=== PATIENT | male | born 1985 | race American Indian/Alaskan Native ===

== ENCOUNTER 2017-05-15 18:12 | Inpatient (IN) | payer OTHER ==
--- NOTE | 2017-05-15 18:36 | Emergency Department Report ---
Stated Complaint: ALCOHOL WITHDRAWL Time Seen by Provider: 05/15/17 18:32 - HPI History of Present Illness: PT states he had a hx of ETOH abuse. PT states he started drinking Wed and stopped this morning. PT states he has been throwing up since 1500 and he does not feel well. - ROS Review of Systems: + chills + n/v + abd pain - Exam Vital Signs: Vital Signs 05/15/17 18:29 Temperature 98.7 F Pulse Rate 134 H Respiratory 20 Rate Blood Pressure 137/97 O2 Sat by Pulse 98 Oximetry Physical Exam: PT anxious in triage PT's abd soft, mild tenderness to umbilicus tachycardic MSE screening note: Focused history and physical exam performed. Due to findings the following was ordered: labs, urine, ekg ED Disposition for MSE Condition: Stable
[2017-05-15 19:14] LABS: Basophils % (Auto) 0.5 % (0.0-1.8); Eosinophils % (Auto) 0.2 % (0.0-4.3); Hematocrit 42.4 % (35.5-45.6); Hemoglobin 14.1 gm/dl (11.8-15.2); Mean Corpuscular HGB Conc 33 % (32-34); Mean Corpuscular Hemoglobin 30 pg (28-32); Mean Corpuscular Volume 89 fl (84-94); Platelet Count 152 K/mm3 (140-440); Red Blood Count 4.77 M/mm3 (3.65-5.03); Red Cell Distribution Width 17.6 % (13.2-15.2); White Blood Count 6.5 K/mm3 (4.5-11.0)
[2017-05-15 19:33] LABS: Alanine Aminotransferase 52 units/L (7-56); Albumin 4.8 g/dL (3.9-5); Albumin/Globulin Ratio 1.3 %; Alkaline Phosphatase 124 units/L (35-129); Anion Gap 30 mmol/L; BUN/Creatinine Ratio 13.75; Blood Urea Nitrogen 11 mg/dL (9-20); Calcium 9.7 mg/dL (8.4-10.2); Carbon Dioxide 22 mmol/L (22-30); Chloride 89.9 mmol/L (98-107); Glucose 104 mg/dL (75-100); Lipase 61 units/L (13-60); Potassium 3.8 mmol/L (3.6-5.0); Sodium 138 mmol/L (137-145); Total Protein 8.6 g/dL (6.3-8.2)
[2017-05-15 19:43] LABS: Urine Drugs of Abuse Note Disclamer
[2017-05-15 20:21] LABS: Bacteria,Urine 1+ /HPF (Negative); Bilirubin,Urine NEG (Negative); Blood,Urine SM (Negative); Ketones,Urine TR mg/dL (Negative); Leukocyte Esterase,Urine TR (Negative); Mucus,Urine 2+ /HPF; Nitrite,Urine NEG (Negative); Urobilinogen,Urine < 2.0 mg/dL (<2.0)
[2017-05-16] MEDS ORDERED: ATIVAN IV PRN ×2 (01:49)
[2017-05-16] MEDS ORDERED: NACL 0.9% 1000 ML 1,000 ML ONE (01:58)
[2017-05-16] MEDS ORDERED: VITAMIN B-1 100 MG, FOLVITE 1 MG, INFUVITE 10 ML in NACL 0.9% 1000 ML 1,000 ML IV ONE (02:08)
[2017-05-16] MEDS ORDERED: ZOFRAN IV ONE (02:08)
--- NOTE | 2017-05-16 02:25 | Emergency Department Report ---
HPI - General Chief Complaint: Alcohol Time Seen by Provider: 05/15/17 18:32 - HPI HPI: This is a 31-year-old -[place] male presents to the emergency department , dropped off by his mother, with complaint of nausea, vomiting, abdominal discomfort and shakiness that he believes is alcohol withdrawal. The patient has a history of alcoholism and says that he was sober for about 13 months but just finished a 5 day drinking binge. He says that he was on "vacation from work" and thought that he could just drink a little bit and enjoy himself. he says he was able to drink one gail on the first day but then each day he was drinking progressively more. His last drink was at about 8 AM this morning. He denies any illicit drug use. He denies any history of alcohol withdrawal seizures or delirium tremens history. He did not take anything for his symptoms prior to presentation. ED Past Medical Hx - Past Medical History Previous Medical History?: No - Surgical History Past Surgical History?: No - Social History Smoking Status: Current Every Day Smoker Substance Use Type: Alcohol - Medications Home Medications: Home Medications Medication Instructions Recorded Confirmed Last Taken Type No Known Home Medications [No 12/22/15 05/16/17 Unknown History Reported Home Medications] ED Review of Systems ROS: Stated complaint: ALCOHOL WITHDRAWL Other details as noted in HPI Comment: All other systems reviewed and negative Constitutional: denies: chills, fever Eyes: denies: eye pain, eye discharge, vision change ENT: denies: ear pain, throat pain Respiratory: denies: cough, shortness of breath, wheezing Cardiovascular: denies: chest pain, palpitations Gastrointestinal: abdominal pain, nausea, vomiting Genitourinary: denies: urgency, dysuria Musculoskeletal: denies: back pain, joint swelling, arthralgia Skin: denies: rash, lesions Neurological: denies: headache, weakness, paresthesias Physical Exam - Physical Exam Vital Signs: Vital Signs 05/15/17 05/16/17 18:29 00:14 Temperature 98.7 F 98.3 F Pulse Rate 134 H 137 H Respiratory 20 18 Rate Blood Pressure 137/97 140/90 O2 Sat by Pulse 98 95 Oximetry Physical Exam: GENERAL: The patient is well-developed well-nourished. HENT: Normocephalic. Atraumatic. Patient has moist mucous membranes. EYES: Extraocular motions are intact. Pupils equal reactive to light bilaterally. NECK: Supple. Trachea is midline. CHEST/LUNGS: Clear to auscultation. There is no respiratory distress noted. HEART/CARDIOVASCULAR: Regular. There is moderate tachycardia. There is no gallop rub or murmur. ABDOMEN: Abdomen is soft, nontender. Patient has hyperactive bowel sounds. There is no abdominal distention. SKIN: Skin is warm and dry. NEURO: The patient is awake, alert, and oriented. The patient is cooperative. The patient has no focal neurologic deficits. The patient has normal speech. Patient has some restlessness and/or agitation. There is a mild tremor seen with hands and arms extended. MUSCULOSKELETAL: There is no tenderness or deformity. There is no limitation range of motion. There is no evidence of acute injury. ED Course Vital Signs 05/15/17 05/16/17 18:29 00:14 Temperature 98.7 F 98.3 F Pulse Rate 134 H 137 H Respiratory 20 18 Rate Blood Pressure 137/97 140/90 O2 Sat by Pulse 98 95 Oximetry ED Medical Decision Making - Lab Data Result diagrams: 05/15/17 18:57 05/15/17 18:57 - EKG Data -: EKG Interpreted by Nh EKG shows normal: sinus rhythm, axis, intervals, QRS complexes, ST-T waves Rate: tachycardia (126 bpm) - EKG Data When compared to previous EKG there are: previous EKG unavailable Interpretation: other (sinus tachycardia at 126 bpm) - Medical Decision Making 31-year-old male presents with alcohol withdrawal. He presents with nausea, vomiting, abdominal pain and showed some restlessness and agitation as he came to triage. He has moderate tachycardia. Blood alcohol level is 0.23 at 7 PM and the patient stopped drinking almost 12 hours earlier. Despite the fact that he still has alcohol intoxication he does have some symptoms of withdrawal. He was given 4 mg of Ativan and he does not appear sedated but it has improved some of his symptoms. He still remains with some tachycardia and complaints of nausea but appears less restless. He will be admitted to the hospital for further evaluation and treatment has been accepted for admission by the hospitalist, Dr. Miller. - Differential Diagnosis Alcohol intoxication, withdrawal, DT's Critical Care Time: No Critical care attestation.: If time is entered above; I have spent that time in minutes in the direct care of this critically ill patient, excluding procedure time. ED Disposition Clinical Impression: Alcohol intoxication, Alcohol withdrawal, Nausea & vomiting Disposition: DC-09 OP ADMIT IP TO THIS HOSP Is pt being admited?: Yes Condition: Stable Referrals: PRIMARY CARE, [Primary Care Provider] - 3-5 Days Time of Disposition: 04:03
[2017-05-16] MEDS ORDERED: ROCEPHIN/NS 1 GM/50 ML 1 GM/50 ML BAG IV ONE (02:56)
[2017-05-16] MEDS ORDERED: MILK OF MAGNESIA PO PRN (05:07)
[2017-05-16] MEDS ORDERED: DULCOLAX PR PRN (05:07)
[2017-05-16] MEDS ORDERED: TYLENOL PO PRN (05:07)
[2017-05-16] MEDS ORDERED: ZOFRAN IV PRN (05:07)
--- NOTE | 2017-05-16 05:09 | History and Physical Report ---
History of Present Illness Date of examination: 05/16/17 History of present illness: 31-year-old male with a history of alcohol abuse was maintained sobriety for the last 13 months, relapsed and started drinking heavily over the last 5 days. He quit cold turkey yesterday and then developed shakes with multiple episodes of nausea vomiting, unable to tolerate oral intake Review Of Systems: Constitutional: no weight loss Ears, eyes, nose, mouth and throat: no nasal congestion, no nasal discharge, no sinus pressure, blurry vision, diplopia Neck: No neck pain or rigidity. Cardiovascular: chest pain, orthopnea, palpitations Respiratory: No shortness of breath, cough Gastrointestinal: abdominal pain, hematochezia Genitourinary : no dysuria, frequency , hematuria Musculoskeletal: no muscle ache Integumentary: no rash, no pruritis Neurological: no parathesias, focal weakness Endocrine: no cold or heat intolerance, no polyuria or polydipsia Hematologic/Lymphatic: no easy bruising, no easy bleeding, no gland swelling Allergic/Immunologic: no urticaria, no angioedema. PAST MEDICAL HISTORY:alcohol abuse PAST SURGICAL HISTORY: None FAMILY HISTORY: Hypertension SOCIAL HISTORY: Alcohol abuse as discussed above, smoked 1 cigarette a day, no drugs Medications and Allergies Allergies Allergy/AdvReac Type Severity Reaction Status Date / Time egg AdvReac Unknown Verified 05/15/17 18:31 Home Medications Medication Instructions Recorded Confirmed Last Taken Type No Known Home Medications [No 12/22/15 05/16/17 Unknown History Reported Home Medications] Active Meds: Active Medications Thiamine HCl 100 mg/ Folic Acid 1 mg/ Multivitamins/Minerals 10 ml/ Sodium Chloride 1,011.2 mls @ 250 mls/hr IV ONCE.ED ONE Stop: 05/16/17 06:10 Last Admin: 05/16/17 03:04 Dose: 250 mls/hr Lorazepam (Ativan) 2 mg IV Q1HR PRN PRN Reason: CIWA-Ar 8-15 Lorazepam (Ativan) 4 mg IV Q1HR PRN PRN Reason: CIWA-Ar 16-25 Lorazepam (Ativan) 4 mg IV Q15MIN PRN PRN Reason: CIWA-Ar >25 Last Admin: 05/16/17 01:53 Dose: 4 mg Exam - Physical Exam Narrative exam: Gen. appearance: Patient lying in bed in no acute distress HEENT: Normocephalic/atraumatic, pupils equal round reactive to light, extra alkaline movement intact, no scleral icterus, no JVD or thyromegaly or nodule, neck is supple, mucous membrane moist, no erythema or exudate Heart: S1-S2, regular rate and rhythm Lungs: Clear to auscultation bilateral breathing comfortable Abdomen: Positive bowel sounds, nontender, nondistended, no organomegaly Extremities: No edema, cyanosis, clubbing Neuro:: Oriented 3 , tremulous, cranial nerves II-12 intact, speech, motor intact Skin: No rash, nodules, warm dry - Constitutional Vitals: Temp Pulse Resp BP Pulse Ox 98.4 F 116 H 20 140/88 97 05/16/17 02:49 05/16/17 02:49 05/16/17 03:18 05/16/17 02:49 05/16/17 03:18 Results - Labs CBC & Chem 7: 05/15/17 18:57 05/15/17 18:57 Labs: Abnormal lab results 05/15/17 05/15/17 05/15/17 Range/Units 18:57 18:57 18:57 RDW 17.6 H (13.2-15.2) % Lymph % (Auto) 38.1 H (13.4-35.0) % Chloride 89.9 L (98-107) mmol/L Glucose 104 H (75-100) mg/dL AST 72 H (5-40) units/L Total Protein 8.6 H (6.3-8.2) g/dL Lipase 61 H (13-60) units/L Urine WBC (Auto) (0.0-6.0) /HPF Salicylates < 0.3 L (2.8-20.0) mg/dL Plasma/Serum Alcohol (0-0.07) gm% 05/15/17 05/15/17 Range/Units 18:57 19:17 RDW (13.2-15.2) % Lymph % (Auto) (13.4-35.0) % Chloride (98-107) mmol/L Glucose (75-100) mg/dL AST (5-40) units/L Total Protein (6.3-8.2) g/dL Lipase (13-60) units/L Urine WBC (Auto) 25.0 H (0.0-6.0) /HPF Salicylates (2.8-20.0) mg/dL Plasma/Serum Alcohol 0.23 H (0-0.07) gm% Assessment and Plan Assessment Delirium tremens/alcohol withdrawal Alcohol abuse UTI Plan Admit to medicine Start wa protocol with IV Ativan, IV fluids, thiamine and folic acid DVT prophylaxis, IV Rocephin
[2017-05-16] MEDS ORDERED: LOVENOX SUB-Q SCH (10:00)
[2017-05-16] MEDS: FOLVITE PO SCH (11:03)
[2017-05-16] MEDS: LOVENOX SUB-Q SCH (11:03)
[2017-05-16] MEDS: VITAMIN B-1 PO SCH (11:03)
[2017-05-16] MEDS: ATIVAN IV PRN ×2 (12:15→16:07)
--- NOTE | 2017-05-16 13:15 | Event Note ---
Date: 05/16/17 Patient seen and examined. This is a follow-up from an admission earlier this morning. Continue plan as outlined in the H&P.
[2017-05-16] MEDS: ROCEPHIN/NS 1 GM/50 ML 1 GM/50 ML BAG IV SCH (23:00)
[2017-05-17] MEDS: ATIVAN IV PRN ×2 (01:00→10:19)
[2017-05-17 06:07] LABS: Basophils % (Auto) 0.5 % (0.0-1.8); Eosinophils % (Auto) 1.2 % (0.0-4.3); Hematocrit 37.6 % (35.5-45.6); Hemoglobin 12.3 gm/dl (11.8-15.2); Mean Corpuscular HGB Conc 33 % (32-34); Mean Corpuscular Hemoglobin 30 pg (28-32); Mean Corpuscular Volume 90 fl (84-94); Red Blood Count 4.17 M/mm3 (3.65-5.03); White Blood Count 4.5 K/mm3 (4.5-11.0)
[2017-05-17 06:11] LABS: Platelet Count 95 K/mm3 (140-440)
[2017-05-17 06:32] LABS: Anion Gap 15 mmol/L; BUN/Creatinine Ratio 8.88; Blood Urea Nitrogen 8 mg/dL (9-20); Carbon Dioxide 28 mmol/L (22-30); Chloride 98.2 mmol/L (98-107); Glucose 85 mg/dL (75-100); Potassium 3.3 mmol/L (3.6-5.0); Sodium 138 mmol/L (137-145)
[2017-05-17] MEDS: LOVENOX SUB-Q SCH (10:18)
[2017-05-17] MEDS: FOLVITE PO SCH (10:19)
[2017-05-17] MEDS: VITAMIN B-1 PO SCH (10:19)
--- NOTE | 2017-05-17 10:47 | Progress Note ---
Assessment and Plan Assessment and plan: Alcohol withdrawal syndrome. Continue CIWA protocol. Psychiatry consultation. Alcohol abuse. We will discuss with case management rehabilitation options. UTI. Continue IV antibiotics and follow-up urine cultures. DVT prophylaxis. Continue Lovenox daily. History Interval history: Patient with slight tremors. Otherwise no new complaints. Hospitalist Physical - Constitutional Vitals: Temp Pulse Resp BP Pulse Ox 98.6 F 100 H 18 124/84 97 05/17/17 04:52 05/17/17 04:52 05/17/17 04:52 05/17/17 04:52 05/17/17 10:00 General appearance: Present: no acute distress, well-nourished - EENT Eyes: Present: PERRL, EOM intact ENT: hearing intact, clear oral mucosa, dentition normal - Neck Neck: Present: supple, normal ROM - Respiratory Respiratory effort: normal Respiratory: bilateral: CTA - Cardiovascular Rhythm: regular Heart Sounds: Present: S1 & S2. Absent: gallop, rub - Extremities Extremities: no ischemia, No edema, Full ROM - Abdominal General gastrointestinal: soft, non-tender, non-distended, normal bowel sounds - Integumentary Integumentary: Present: clear, warm, dry - Neurologic Neurologic: CNII-XII intact, moves all extremities Results - Labs CBC & Chem 7: 05/17/17 04:00 05/17/17 04:00 Labs: Laboratory Last Values WBC 4.5 K/mm3 (4.5-11.0) 05/17/17 04:00 RBC 4.17 M/mm3 (3.65-5.03) 05/17/17 04:00 Hgb 12.3 gm/dl (11.8-15.2) 05/17/17 04:00 Hct 37.6 % (35.5-45.6) 05/17/17 04:00 MCV 90 fl (84-94) 05/17/17 04:00 MCH 30 pg (28-32) 05/17/17 04:00 MCHC 33 % (32-34) 05/17/17 04:00 RDW 18.0 % (13.2-15.2) H 05/17/17 04:00 Plt Count 95 K/mm3 (140-440) L 05/17/17 04:00 Lymph % (Auto) 41.7 % (13.4-35.0) H 05/17/17 04:00 [place] % (Auto) 7.7 % (0.0-7.3) H 05/17/17 04:00 Eos % (Auto) 1.2 % (0.0-4.3) 05/17/17 04:00 Baso % (Auto) 0.5 % (0.0-1.8) 05/17/17 04:00 Lymph # 1.9 K/mm3 (1.2-5.4) 05/17/17 04:00 [place] # 0.3 K/mm3 (0.0-0.8) 05/17/17 04:00 Eos # 0.1 K/mm3 (0.0-0.4) 05/17/17 04:00 Baso # 0.0 K/mm3 (0.0-0.1) 05/17/17 04:00 Seg Neutrophils % 48.9 % (40.0-70.0) 05/17/17 04:00 Seg Neutrophils # 2.2 K/mm3 (1.8-7.7) 05/17/17 04:00 Sodium 138 mmol/L (137-145) 05/17/17 04:00 Potassium 3.3 mmol/L (3.6-5.0) L 05/17/17 04:00 Chloride 98.2 mmol/L (98-107) 05/17/17 04:00 Carbon Dioxide 28 mmol/L (22-30) 05/17/17 04:00 Anion Gap 15 mmol/L 05/17/17 04:00 BUN 8 mg/dL (9-20) L 05/17/17 04:00 Creatinine 0.9 mg/dL (0.8-1.5) 05/17/17 04:00 Estimated GFR > 60 ml/min 05/17/17 04:00 BUN/Creatinine Ratio 8.88 % 05/17/17 04:00 Glucose 85 mg/dL (75-100) 05/17/17 04:00 Calcium 9.0 mg/dL (8.4-10.2) 05/17/17 04:00 Total Bilirubin 0.40 mg/dL (0.1-1.2) 05/15/17 18:57 AST 72 units/L (5-40) H 05/15/17 18:57 ALT 52 units/L (7-56) 18 18:57 Alkaline Phosphatase 124 units/L (35-129) 05/15/17 18:57 Total Protein 8.6 g/dL (6.3-8.2) H 18 18:57 Albumin 4.8 g/dL (3.9-5) 18 18:57 Albumin/Globulin Ratio 1.3 % 05/15/17 18:57 Lipase 61 units/L (13-60) H 05/15/17 18:57 Urine Color [place] (Yellow) 05/15/17 19:17 Urine Turbidity Clear (Clear) 05/15/17 19:17 Urine pH 5.0 (5.0-7.0) 05/15/17 19:17 Ur Specific [place] 1.030 (1.003-1.030) 05/15/17 19:17 Urine Protein 100 mg/dl mg/dL (Negative) 05/15/17 19:17 Urine Glucose (UA) >=500 mg/dL (Negative) 05/15/17 19:17 Urine Ketones Tr mg/dL (Negative) 05/15/17 19:17 Urine Blood Sm (Negative) 05/15/17 19:17 Urine Nitrite Neg (Negative) 05/15/17 19:17 Urine Bilirubin Neg (Negative) 05/15/17 19:17 Urine Urobilinogen < 2.0 mg/dL (<2.0) 05/15/17 19:17 Ur Leukocyte Esterase Tr (Negative) 05/15/17 19:17 Urine WBC (Auto) 25.0 /HPF (0.0-6.0) H 05/15/17 19:17 Urine RBC (Auto) 7.0 /HPF (0.0-6.0) 05/15/17 19:17 Urine Bacteria (Auto) 1+ /HPF (Negative) 05/15/17 19:17 Urine Mucus 2+ /HPF 05/15/17 19:17 Salicylates < 0.3 mg/dL (2.8-20.0) L 05/15/17 18:57 Urine Opiates Screen Presumptive negative 05/15/17 19:17 Urine Methadone Screen Presumptive negative 05/15/17 19:17 Acetaminophen < 15.0 ug/mL (10.0-30.0) 05/15/17 18:57 Ur Barbiturates Screen Presumptive negative 05/15/17 19:17 Ur Phencyclidine Scrn Presumptive negative 05/15/17 19:17 Ur Amphetamines Screen Presumptive negative 05/15/17 19:17 U Benzodiazepines Scrn Presumptive negative 05/15/17 19:17 Urine Cocaine Screen Presumptive negative 05/15/17 19:17 U Marijuana (THC) Screen Presumptive negative 05/15/17 19:17 Drugs of Abuse Note Disclamer 05/15/17 19:17 Plasma/Serum Alcohol 0.23 gm% (0-0.07) H 05/15/17 18:57
[2017-05-18] MEDS: ATIVAN IV PRN ×2 (00:42→13:51)
[2017-05-18] MEDS: ROCEPHIN/NS 1 GM/50 ML 1 GM/50 ML BAG IV SCH (00:43)
[2017-05-18 06:33] LABS: Basophils % (Auto) 0.5 % (0.0-1.8); Eosinophils % (Auto) 1.8 % (0.0-4.3); Hematocrit 34.9 % (35.5-45.6); Hemoglobin 11.8 gm/dl (11.8-15.2); Mean Corpuscular HGB Conc 34 % (32-34); Mean Corpuscular Hemoglobin 30 pg (28-32); Mean Corpuscular Volume 90 fl (84-94); Red Blood Count 3.89 M/mm3 (3.65-5.03); Red Cell Distribution Width 17.2 % (13.2-15.2); White Blood Count 4.1 K/mm3 (4.5-11.0)
[2017-05-18 06:39] LABS: Platelet Count 83 K/mm3 (140-440)
[2017-05-18 06:55] LABS: Anion Gap 19 mmol/L; BUN/Creatinine Ratio 11.42; Blood Urea Nitrogen 8 mg/dL (9-20); Carbon Dioxide 24 mmol/L (22-30); Chloride 100.4 mmol/L (98-107); Glucose 85 mg/dL (75-100); Potassium 3.6 mmol/L (3.6-5.0); Sodium 140 mmol/L (137-145)
--- NOTE | 2017-05-18 08:09 | Discharge Summary ---
Providers - Providers Date of Admission: 05/16/17 05:07 Date of discharge: 05/18/17 Attending physician: GIGI BEVERLY 05/17/17 10:46 Consult to Mental Health [CONS] Routine Reason For Exam: ETOH withdrawal Place consult to:: Mental Health Notified:: Ezra BROOKS Phone number called:: [phone]. [phone] Was contact made?: Yes If yes, spoke with:: [facility] Time called:: 11:08 Primary care physician: [employer] Hospitalization Reason for admission: alcohol withdrawal Condition: Stable Hospital course: 31-year-old male with a history of alcohol abuse was maintained sobriety for the last 13 months, relapsed and started drinking heavily over the last 5 days prior to admission. He stopped drinking the day prior to admission and then developed tremors with multiple episodes of nausea vomiting, unable to tolerate oral intake. Patient was admitted to the hospital and placed on CIWA protocol. Patient received IV fluids, thiamine and folic acid. Patient also received Ativan for his alcohol withdrawal symptoms. Patient underwent mental health/ psychiatry evaluation. Patient's alcohol withdrawal symptoms resolved. Patient declined inpatient treatment, but agrees to consider outpatient resources. He will be provided with appropriate referrals for outpatient substance abuse treatment. Other complications during hospital stay include a UTI. Patient was treated with IV Rocephin. Patient will be discharged with Ceftin. Dedicated discharge time 31 minutes. Disposition: DC-01 TO HOME OR SELFCARE Time spent for discharge: 31 - Discharge Diagnoses (1) UTI (urinary tract infection) Status: Acute Qualifiers: Urinary tract infection type: U Hematuria presence: H Indwelling urinary catheter type: I Encounter type: E (2) Alcohol intoxication Status: Acute Qualifiers: Complication of substance-induced condition: C (3) Alcohol withdrawal Status: Acute Qualifiers: Complication of substance-induced condition: C (4) Nausea & vomiting Status: Acute Qualifiers: Vomiting type: V Vomiting Intractability: V Core Measure Documentation - Palliative Care Palliative Care/ Comfort Measures: Not Applicable - Core Measures Any of the following diagnoses?: none Exam - Constitutional Vitals: Temp Pulse Resp BP Pulse Ox 98.4 F 95 H 16 124/82 100 05/18/17 05:15 05/18/17 05:15 05/18/17 05:15 05/18/17 05:15 05/18/17 05:15 General appearance: Present: no acute distress, well-nourished - EENT Eyes: Present: PERRL ENT: hearing intact, clear oral mucosa - Neck Neck: Present: supple, normal ROM - Respiratory Respiratory effort: normal Respiratory: bilateral: CTA - Cardiovascular Heart Sounds: Present: S1 & S2. Absent: rub, click - Extremities Extremities: pulses symmetrical, No edema Peripheral Pulses: within normal limits - Abdominal General gastrointestinal: Present: soft, non-tender, non-distended, normal bowel sounds Male genitourinary: Present: normal - Integumentary Integumentary: Present: clear, warm, dry - Musculoskeletal Musculoskeletal: gait normal, strength equal bilaterally - Psychiatric Psychiatric: appropriate mood/affect, intact judgment & insight - Neurologic Neurologic: CNII-XII intact, moves all extremities Plan Activity: no restrictions Weight Bearing Status: Full Weight Bearing Diet: regular Additional Instructions: Please provide appropriate referrals for outpatient substance abuse treatment Follow up with: PRIMARY CARE, [Primary Care Provider] - 3-5 Days Prescriptions: Cefuroxime Axetil [Ceftin] 500 mg PO Q12H #10 tablet Folic Acid [Folvite] 1 mg PO QDAY #30 tablet Thiamine [Vitamin B-1] 100 mg PO DAILY #30 tablet
[2017-05-18 09:52] VITALS: BP 119/91
[2017-05-18] MEDS: VITAMIN B-1 PO SCH (10:09)
[2017-05-18] MEDS: FOLVITE PO SCH (10:09)
[2017-05-18] MEDS: LOVENOX SUB-Q SCH (10:10)
== END 2017-05-18 15:32 | disposition home or self-care (01) | DRG 690 ==
LOC: ED 18:12 → EEVIPCON 18:12 → 4A 05-16 05:07
PROVIDERS: ADMIT Internal Medicine; ATTEND Hospitalist
DX: N39.0 Urinary tract infection, site not specified (principal); F10.221 Alcohol dependence with intoxication delirium; F10.231 Alcohol dependence with withdrawal delirium; F17.210 Nicotine dependence, cigarettes, uncomplicated; Z82.49 Family history of ischemic heart disease and other diseases of the circulatory system; Z91.012 Allergy to eggs
CPT/HCPCS: 36415; 80048; 80053; 80307; 80320; 81001; 83690; 85025; 93005; 93010; 96365; 96366; 96368; 96375; 99406; G0480; J0696; J1650; J2060; J2405; J3411; J7030

== ENCOUNTER 2017-09-06 03:22 | Emergency (ER) | payer OTHER ==
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
[2017-09-06 05:00] LABS: Basophils % (Auto) 0.5 % (0.0-1.8); Eosinophils % (Auto) 0.3 % (0.0-4.3); Hematocrit 45.7 % (35.5-45.6); Hemoglobin 15.2 gm/dl (11.8-15.2); Lymphocytes # (Auto) 2.3 K/mm3 (1.2-5.4); Lymphocytes % (Auto) 27.7 % (13.4-35.0); Mean Corpuscular HGB Conc 33 % (32-34); Mean Corpuscular Hemoglobin 31 pg (28-32); Mean Corpuscular Volume 93 fl (84-94); Monocytes # (Auto) 0.4 K/mm3 (0.0-0.8); Monocytes % (Auto) 5.1 % (0.0-7.3); Platelet Count 216 K/mm3 (140-440); Red Blood Count 4.91 M/mm3 (3.65-5.03); Red Cell Distribution Width 14.6 % (13.2-15.2)
[2017-09-06 05:19] LABS: BUN/Creatinine Ratio 10; Blood Urea Nitrogen 7 mg/dL (9-20); Calcium 9.3 mg/dL (8.4-10.2); Hemolysis Index 36
[2017-09-06] MEDS ORDERED: XANAX PO ONE (15:09)
[2017-09-06] MEDS ORDERED: ZOFRAN IV ONE (15:09)
[2017-09-06] MEDS ORDERED: NACL 0.9% 1000 ML 1,000 ML IV ONE (15:09)
[2017-09-06 17:18] VITALS: BP 119/90
--- NOTE | 2017-09-06 17:58 | Emergency Department Report ---
ED Headache HPI - General Chief Complaint: Headache Stated Complaint: ABD PAIN Time Seen by Provider: 09/06/17 14:43 - History of Present Illness Initial Comments: Patient is a 32-year-old male who has a history of heavy alcohol use. Patient states he is trying to stop drinking last drink was yesterday however he states he needs something for nausea and vomiting withdrawal. Patient states he's been very shaky having nausea vomiting as well as a generalized headache. Headache is 5 out of 10 in severity. Patient denies seizure activity currently or in the past with stopping alcohol. Patient states he is not interested in a treatment program at this time. Patient denies fevers chills nausea vomiting diarrhea Allergies/Adverse Reactions: Allergies egg Adverse Reaction (Verified 05/15/17 18:31) Unknown Home Medications: Ambulatory Orders Cefuroxime Axetil [Ceftin] 500 mg PO Q12H #10 tablet 05/18/17 Folic Acid [Folvite] 1 mg PO QDAY #30 tablet 05/18/17 Thiamine [Vitamin B-1] 100 mg PO DAILY #30 tablet 05/18/17 ALPRAZolam [Xanax TAB] 0.25 mg PO TID PRN #9 tab 09/06/17 ED Review of Systems ROS: Stated complaint: ABD PAIN Other details as noted in HPI Comment: All other systems reviewed and negative ED Past Medical Hx - Past Medical History Hx Congestive Heart Failure: No Hx Diabetes: No Hx Asthma: No Hx COPD: No - Surgical History Past Surgical History?: No - Social History Smoking Status: Never Smoker Substance Use Type: Alcohol - Medications Home Medications: Home Medications Medication Instructions Recorded Confirmed Last Taken Type Cefuroxime Axetil [Ceftin] 500 mg PO Q12H #10 tablet 05/18/17 Unknown Rx Folic Acid [Folvite] 1 mg PO QDAY #30 tablet 05/18/17 Unknown Rx Thiamine [Vitamin B-1] 100 mg PO DAILY #30 tablet 05/18/17 Unknown Rx ALPRAZolam [Xanax TAB] 0.25 mg PO TID PRN #9 tab 09/06/17 Unknown Rx ED Physical Exam - General Limitations: No Limitations General appearance: alert, in no apparent distress, anxious - Head Head exam: Present: atraumatic, normocephalic - Eye Eye exam: Present: normal appearance - ENT ENT exam: Present: mucous membranes moist - Neck Neck exam: Present: normal inspection - Respiratory Respiratory exam: Present: normal lung sounds bilaterally. Absent: respiratory distress, wheezes, rales, rhonchi - Cardiovascular Cardiovascular Exam: Present: regular rate, normal rhythm. Absent: systolic murmur, diastolic murmur, rubs, gallop - GI/Abdominal GI/Abdominal exam: Present: soft, normal bowel sounds. Absent: distended, tenderness, guarding - Rectal Rectal exam: Present: deferred - Extremities Exam Extremities exam: Present: normal inspection - Back Exam Back exam: Present: normal inspection - Neurological Exam Neurological exam: Present: alert, oriented X3 - Psychiatric Psychiatric exam: Present: normal affect, normal mood - Skin Skin exam: Present: warm, dry, intact, normal color. Absent: rash ED Course Vital Signs 09/06/17 09/06/17 09/06/17 03:24 11:44 17:17 Temperature 98.1 F 98.8 F Pulse Rate 108 H 72 117 H Respiratory 20 14 18 Rate Blood Pressure 128/90 Blood Pressure 128/90 110/73 119/90 [Left] O2 Sat by Pulse 97 100 97 Oximetry ED Medical Decision Making - Lab Data Result diagrams: 09/06/17 04:07 09/06/17 04:07 - Medical Decision Making Patient was hydrated and given nausea vomiting medications. Patient also given a dose of Xanax which did improve his shakiness. Patient be discharged home at this time. Critical care attestation.: If time is entered above; I have spent that time in minutes in the direct care of this critically ill patient, excluding procedure time. ED Disposition Clinical Impression: Alcohol withdrawal Qualifiers: Complication of substance-induced condition: uncomplicated Qualified Code(s): F10.230 - Alcohol dependence with withdrawal, uncomplicated Disposition: DC-01 TO HOME OR SELFCARE Is pt being admited?: No Does the pt Need Aspirin: No Condition: Fair Prescriptions: ALPRAZolam [Xanax TAB] 0.25 mg PO TID PRN #9 tab PRN Reason: Anxiety Referrals: PRIMARY CARE, [Primary Care Provider] - 3-5 Days
== END 2017-09-06 18:42 | disposition home or self-care (01) ==
LOC: ED 03:22
DX: F10.239 Alcohol dependence with withdrawal, unspecified (principal); Z91.012 Allergy to eggs
CPT/HCPCS: 36415; 70450; 72125; 80048; 85025; 96361; 96374; 99284; G0480; J2405; J7030; 80320

== ENCOUNTER 2021-03-08 16:24 | Emergency (ER) | payer SELFPAY ==
--- NOTE | 2021-03-08 17:07 | Emergency Department Report ---
HPI - General Chief Complaint: Psych Time Seen by Provider: 03/08/21 16:50 - HPI HPI: 35-year-old male with history of anxiety/depression and alcohol use disorder presents saying that he wants detox. The patient states that he drank an entire bottle of wine today along with several shots of liquor. He states that he drinks several different types of alcohol daily but is unable to quantify the amount. He states that he wants to stop drinking. When asked about whether he has homicidal or suicidal ideation, the patient states that if he is not able to get help today he will drink himself to . When asked whether he feels suicidal he says no. When asked whether he feels homicidal he says no. He denies auditory visual hallucinations. Other than using alcohol today he denies use of any other substances. He denies any physical symptoms or complaints at this time including headache, vision change, chest pain, shortness of breath, abdominal pain, nausea/vomiting, focal weakness, sensory changes, or any other complaints. ED Past Medical Hx - Past Medical History Hx Congestive Heart Failure: No Hx Diabetes: No Hx Psychiatric Treatment: Yes (anxiety, depression) Hx Asthma: No Hx COPD: No Additional medical history: alcoholism - Surgical History Past Surgical History?: No - Social History Smoking Status: Current Every Day Smoker Substance Use Type: Alcohol, Marijuana - Medications Home Medications: Home Medications Medication Instructions Recorded Confirmed Last Taken Type No Known Home Medications [No 07/30/18 07/30/18 Unknown History Reported Home Medications] ED Review of Systems ROS: Stated complaint: ETOH Other details as noted in HPI Constitutional: denies: chills, fever Eyes: denies: eye pain, vision change ENT: denies: throat pain, congestion Respiratory: denies: cough, shortness of breath Cardiovascular: denies: chest pain, palpitations Gastrointestinal: denies: abdominal pain, nausea, vomiting Genitourinary: denies: dysuria, frequency Musculoskeletal: denies: back pain Skin: denies: rash Psychiatric: anxiety, depression. denies: auditory hallucinations, visual h allucinations Physical Exam - Physical Exam Vital Signs: Vital Signs 03/08/21 16:47 Temperature 98.0 F Pulse Rate 97 H Respiratory 18 Rate Blood Pressure 123/87 O2 Sat by Pulse 98 Oximetry Physical Exam: GENERAL: Well developed and well nourished. No acute distress. Smells of al cohol. Appears intoxicated and with slightly slurred speech but is alert and oriented x4 HEENT: Normocephalic. No obvious signs of trauma. Moist mucous membranes. EYES: Extraocular movements are intact. NECK: Supple. Trachea is midline. LUNGS: Nonlabored breathing. Equal chest rise bilaterally. Clear to auscultation bilaterally. HEART/CARDIOVASCULAR: Regular rate and rhythm. No murmurs or rubs. VASCULAR: Cap refill < 2 seconds ABDOMEN: Abdomen is soft and nondistended. There is no significant tenderness, guarding or rebound. SKIN: Skin is warm and dry NEURO: Patient is awake, alert, and oriented. photographs curator II-XII grossly intact. No focal deficits. Normal motor and sensory exam throughout. MUSCULOSKELETAL: No obvious deformities. No significant tenderness. BACK/SPINE: No costovertebral angle tenderness. ED Course Vital Signs 03/08/21 16:47 Temperature 98.0 F Pulse Rate 97 H Respiratory 18 Rate Blood Pressure 123/87 O2 Sat by Pulse 98 Oximetry ED Medical Decision Making - Lab Data Result diagrams: 03/08/21 17:08 03/08/21 17:08 Lab Results 03/08/21 03/08/21 03/08/21 Range/Units 17:08 17:08 17:08 WBC (4.5-11.0) K/mm3 RBC (3.65-5.03) M/mm3 Hgb (11.8-15.2) gm/dl Hct (35.5-45.6) % MCV (84-94) fl MCH (28-32) pg MCHC (32-34) % RDW (13.2-15.2) % Plt Count (140-440) K/mm3 Lymph % (Auto) (13.4-35.0) % [place] % (Auto) (0.0-7.3) % Eos % (Auto) (0.0-4.3) % Baso % (Auto) (0.0-1.8) % Lymph # (Auto) (1.2-5.4) K/mm3 [place] # (Auto) (0.0-0.8) K/mm3 Eos # (Auto) (0.0-0.4) K/mm3 Baso # (Auto) (0.0-0.1) K/mm3 Seg Neutrophils % (40.0-70.0) % Seg Neutrophils # (1.8-7.7) K/mm3 Sodium 137 (137-145) mmol/L Potassium 3.8 (3.6-5.0) mmol/L Chloride 98.8 (98-107) mmol/L Carbon Dioxide 23 (22-30) mmol/L Anion Gap 19 mmol/L BUN 10 (9-20) mg/dL Creatinine 1.0 (0.8-1.3) mg/dL Estimated GFR > 60 ml/min BUN/Creatinine Ratio 10 % Glucose 98 (75-100) mg/dL Calcium 8.7 (8.4-10.2) mg/dL Urine Color (Yellow) Urine Turbidity (Clear) Urine pH (5.0-7.0) Ur Specific Foster (1.003-1.030) Urine Protein (Negative) mg/dL Urine Glucose (UA) (Negative) mg/dL Urine Ketones (Negative) mg/dL Urine Blood (Negative) Urine Nitrite (Negative) Urine Bilirubin (Negative) Urine Urobilinogen (<2.0) mg/dL Ur Leukocyte Esterase (Negative) Urine WBC (Auto) (0.0-6.0) /HPF Urine RBC (Auto) (0.0-6.0) /HPF Urine Bacteria (Auto) (Negative) /HPF Salicylates < 0.3 L (2.8-20.0) mg/dL Urine Opiates Screen Urine Methadone Screen Acetaminophen 5.0 L (10.0-30.0) ug/mL Ur Barbiturates Screen Ur Phencyclidine Scrn Ur Amphetamines Screen U Benzodiazepines Scrn Urine Cocaine Screen U Marijuana (THC) Screen Drugs of Abuse Note Plasma/Serum Alcohol (0-0.07) % 03/08/21 03/08/21 03/08/21 Range/Units 17:08 17:08 17:29 WBC 6.6 (4.5-11.0) K/mm3 RBC 4.18 (3.65-5.03) M/mm3 Hgb 13.6 (11.8-15.2) gm/dl Hct 40.0 (35.5-45.6) % MCV 96 H (84-94) fl MCH 32 (28-32) pg MCHC 34 (32-34) % RDW 18.3 H (13.2-15.2) % Plt Count 160 (140-440) K/mm3 Lymph % (Auto) 29.0 (13.4-35.0) % [place] % (Auto) 5.0 (0.0-7.3) % Eos % (Auto) 0.9 (0.0-4.3) % Baso % (Auto) 1.4 (0.0-1.8) % Lymph # (Auto) 1.9 (1.2-5.4) K/mm3 [place] # (Auto) 0.3 (0.0-0.8) K/mm3 Eos # (Auto) 0.1 (0.0-0.4) K/mm3 Baso # (Auto) 0.1 (0.0-0.1) K/mm3 Seg Neutrophils % 63.7 (40.0-70.0) % Seg Neutrophils # 4.2 (1.8-7.7) K/mm3 Sodium (137-145) mmol/L Potassium (3.6-5.0) mmol/L Chloride (98-107) mmol/L Carbon Dioxide (22-30) mmol/L Anion Gap mmol/L BUN (9-20) mg/dL Creatinine (0.8-1.3) mg/dL Estimated GFR ml/min BUN/Creatinine Ratio % Glucose (75-100) mg/dL Calcium (8.4-10.2) mg/dL Urine Color Straw (Yellow) Urine Turbidity Clear (Clear) Urine pH 5.0 (5.0-7.0) Ur Specific Foster 1.008 (1.003-1.030) Urine Protein <15 mg/dl (Negative) mg/dL Urine Glucose (UA) Neg (Negative) mg/dL Urine Ketones Neg (Negative) mg/dL Urine Blood Neg (Negative) Urine Nitrite Neg (Negative) Urine Bilirubin Neg (Negative) Urine Urobilinogen < 2.0 (<2.0) mg/dL Ur Leukocyte Esterase Neg (Negative) Urine WBC (Auto) 1.0 (0.0-6.0) /HPF Urine RBC (Auto) 1.0 (0.0-6.0) /HPF Urine Bacteria (Auto) 1+ (Negative) /HPF Salicylates (2.8-20.0) mg/dL Urine Opiates Screen Urine Methadone Screen Acetaminophen (10.0-30.0) ug/mL Ur Barbiturates Screen Ur Phencyclidine Scrn Ur Amphetamines Screen U Benzodiazepines Scrn Urine Cocaine Screen U Marijuana (THC) Screen Drugs of Abuse Note Plasma/Serum Alcohol 0.18 H (0-0.07) % 03/08/21 Range/Units 17:29 WBC (4.5-11.0) K/mm3 RBC (3.65-5.03) M/mm3 Hgb (11.8-15.2) gm/dl Hct (35.5-45.6) % MCV (84-94) fl MCH (28-32) pg MCHC (32-34) % RDW (13.2-15.2) % Plt Count (140-440) K/mm3 Lymph % (Auto) (13.4-35.0) % [place] % (Auto) (0.0-7.3) % Eos % (Auto) (0.0-4.3) % Baso % (Auto) (0.0-1.8) % Lymph # (Auto) (1.2-5.4) K/mm3 [place] # (Auto) (0.0-0.8) K/mm3 Eos # (Auto) (0.0-0.4) K/mm3 Baso # (Auto) (0.0-0.1) K/mm3 Seg Neutrophils % (40.0-70.0) % Seg Neutrophils # (1.8-7.7) K/mm3 Sodium (137-145) mmol/L Potassium (3.6-5.0) mmol/L Chloride (98-107) mmol/L Carbon Dioxide (22-30) mmol/L Anion Gap mmol/L BUN (9-20) mg/dL Creatinine (0.8-1.3) mg/dL Estimated GFR ml/min BUN/Creatinine Ratio % Glucose (75-100) mg/dL Calcium (8.4-10.2) mg/dL Urine Color (Yellow) Urine Turbidity (Clear) Urine pH (5.0-7.0) Ur Specific Foster (1.003-1.030) Urine Protein (Negative) mg/dL Urine Glucose (UA) (Negative) mg/dL Urine Ketones (Negative) mg/dL Urine Blood (Negative) Urine Nitrite (Negative) Urine Bilirubin (Negative) Urine Urobilinogen (<2.0) mg/dL Ur Leukocyte Esterase (Negative) Urine WBC (Auto) (0.0-6.0) /HPF Urine RBC (Auto) (0.0-6.0) /HPF Urine Bacteria (Auto) (Negative) /HPF Salicylates (2.8-20.0) mg/dL Urine Opiates Screen Presumptive negative Urine Methadone Screen Presumptive negative Acetaminophen (10.0-30.0) ug/mL Ur Barbiturates Screen Presumptive negative Ur Phencyclidine Scrn Presumptive negative Ur Amphetamines Screen Presumptive negative U Benzodiazepines Scrn Presumptive negative Urine Cocaine Screen Presumptive negative U Marijuana (THC) Screen Presumptive positive Drugs of Abuse Note Disclamer Plasma/Serum Alcohol (0-0.07) % - Medical Decision Making 35-year-old male with anxiety/depression and alcohol use disorder who presents wanting detox from alcohol. He states that if he is not given help today he will drink himself to . Otherwise denies hallucinations, HI, or desire to kill himself. He admits to consuming a large amount of alcohol today and appears slightly intoxicated and smells of alcohol. With the exception of the slightly slurred speech, he has a nonfocal neurologic exam. The remainder of his physical exam is within normal limits. We will send medical clearance labs and have patient evaluated by the mental health travel occupational therapist/psychiatry team to give recommendations regarding disposition. Labs have resulted and reveal no significant leukocytosis or anemia. Creatinine is within normal range and there are no significant electrolyte abnormalities. Urinalysis is within normal limits. UDS is positive for THC. Serum alcohol level is elevated at 0.18. He is medically cleared for mental health evaluation. The patient was seen by the mental health travel occupational therapist in conjunction with the psychiatrist and he denied SI/HI of any kind. They do not recommend further inpatient treatment and instead recommend outpatient follow-up. I will prepare the patient discharge instructions and outpatient resources for follow-up and he will be discharged when clinically sober. Patient with steady gait, toelrating PO, and without obvious signs of intoxication on discharge Critical care attestation.: If time is entered above; I have spent that time in minutes in the direct care of this critically ill patient, excluding procedure time. ED Disposition Clinical Impression: Alcohol intoxication, Depression Disposition: DC-01 TO HOME OR SELFCARE Is pt being admited?: No Condition: Stable Instructions: Alcohol Abuse and Dependence Information, Adult, Alcohol I ntoxication, Alcohol Abuse and Nutrition, Finding Treatment for Addiction Additional Instructions: Please follow-up using the following outpatient resources. Return to the e mergency department should you develop worsening symptoms, thoughts of hurting yourself or others, or any other new concerns. Professional and Agency Contacts To help [facility](20/03) [place] Crisis Line: Suicide Prevention Line: Crisis Text Line: Text START to 510084 Emergency: 911 Outpatient COMMUNITY Behavioral Health Resources: [facility]AN: [facility] [address] [place], [place] [address] [place]: [facility] [address] [place] [address] [place]: [facility] - [address] [place] [address] Monday thru Monday - 8am - 5pm [facility] Address: [address] [place] [address] [place]: [facility] Address: [address] [place] [address] Monday thru Monday- 7am-2pm [facility] Address: [address] [place] [address] Monday thru Monday: 8:30AM-5PM In case of an emergency, please contact the following numbers: [place] Crisis and Access Line: Number: Crisis Text Line: (Text START) Number: 992333 Suicide Prevention Line: Number: Emergency Number: 911 SUBSTANCE ABUSE PROGRAMS: [facility]: Location: [place], [place] [facility] Address: [address] [place] [address] [facility]: Address: [address] [place] [address] [facility]: Address: [address] [place] [address] [facility]: Address: [address] [place] [address] ELIA[facility] Address: [address] [place] [address]. Please contact above numbers to attempt placement into free based program. Medicaid Programs: [facility]: Address: [address] [place] [address] [facility]: Address: [address] [place] [address] [facility] [employer] [facility] [employer] goal is to take chronically homeless men and help them overcome their barriers, change them as human beings, making them productive and self- sufficient individuals. Each [employer] participant is housed at our facility for up to a year while they participate in transitional work (earning $7.40/hr for 30+ hours per week). All participants renounce dependency and remain drug and alcohol free. Personal support, case management, and workforce training is offered throughout the program. We also provide AA/NA Classes, GED classes, support in obtaining a service car driver's licenses, help setting up a bank account, and life skill preparation courses. IF A MAN IS COMMITTED TO BEING CLEAN, TO ADDRESSING THE PAST, AND TO WORKING, WE WILL HELP HIM GET A SPD TECH JOB, TRANSPORTATION AND PERMANENT HOUSING WITHIN A YEAR. [employer] [address] [place] [address] [email or web address] HOMELESS RESOURCES: [facility] NEED HELP? If you are in need of help or know someone who does, please contact us at or call , or come to our offices at [address] [place] [address], Monday-Monday beginning at 8AM. [facility] Males only Admission at 7am Mon to Fri Address: [address] [place] [address] Client Engagement Center [phone] Regular program admission occurs Monday through Monday at 7:00 am and operates on a first come, first serve basis. Because we cant anticipate program availability in advance and program spots are in high demand, we recommend arriv ing early. Space fills up fast! Next steps can include: Assignment to a [facility] program bed Connection to and placement in a partner program, or Referral to a partner agency [facility] Admission at 4:30pm daily Address: [place] [address] [facility] Services Admission from 8am to 10am Daily No intake until 08/24/20 Address: [address] [place] [address] [facility] WOMEN and FAMILY Admission Address: [address] , [place] [id number] Referrals: [facility] [Provider Group] - 3-5 Days
[2021-03-08 17:42] LABS: Basophils # (Auto) 0.1 K/mm3 (0.0-0.1); Basophils % (Auto) 1.4 % (0.0-1.8); Eosinophils # (Auto) 0.1 K/mm3 (0.0-0.4); Eosinophils % (Auto) 0.9 % (0.0-4.3); Hemoglobin 13.6 gm/dl (11.8-15.2); Lymphocytes # (Auto) 1.9 K/mm3 (1.2-5.4); Mean Corpuscular HGB Conc 34 % (32-34); Mean Corpuscular Volume 96 fl (84-94); Monocytes # (Auto) 0.3 K/mm3 (0.0-0.8); Platelet Count 160 K/mm3 (140-440); Red Blood Count 4.18 M/mm3 (3.65-5.03); Red Cell Distribution Width 18.3 % (13.2-15.2)
[2021-03-08 18:11] LABS: Bacteria,Urine 1+ /HPF (Negative); Bilirubin,Urine NEG (Negative); Blood,Urine NEG (Negative); Color,Urine Straw (Yellow); Protein,Urine <15 mg/dL mg/dL (Negative); Urobilinogen,Urine < 2.0 mg/dL (<2.0)
[2021-03-08 18:13] LABS: BUN/Creatinine Ratio 10; Blood Urea Nitrogen 10 mg/dL (9-20); Calcium 8.7 mg/dL (8.4-10.2); Hemolysis Index 12
[2021-03-08 18:23] LABS: Amphetamine Screen,Urine PRESUMPTIVE NEGATIVE; Benzodiazepines Screen,Urine PRESUMPTIVE NEGATIVE; Cannabinoid Screen,Urine PRESUMPTIVE POSITIVE; Cocaine Screen,Urine PRESUMPTIVE NEGATIVE; Methadone Screen,Urine PRESUMPTIVE NEGATIVE; Opiate Screen,Urine PRESUMPTIVE NEGATIVE
[2021-03-08 20:06] VITALS: BP 130/92
== END 2021-03-08 23:14 | disposition home or self-care (01) ==
LOC: ED 16:24 → EEVIPCON 16:24 → ED 23:14
DX: F10.129 Alcohol abuse with intoxication, unspecified (principal); F32.9 Major depressive disorder, single episode, unspecified; F41.9 Anxiety disorder, unspecified; F17.200 Nicotine dependence, unspecified, uncomplicated; F12.90 Cannabis use, unspecified, uncomplicated; Z72.89 Other problems related to lifestyle; Y90.9 Presence of alcohol in blood, level not specified
CPT/HCPCS: 36415; 80048; 80307; 80320; 81001; 85025; 99284; G0480